=== PATIENT | female | born 1985 | race Caucasian/White ===

== ENCOUNTER 2018-11-08 19:04 | Inpatient (IN) ==
--- NOTE | 2018-11-08 19:14 | ED ---
HPI General Chief Complaint: Medical Clearance Stated Complaint: Transfer Neuro/FHNSB Time Seen by Provider: 11/08/18 19:11 Source: EMS Mode of arrival: EMS History of Present Illness HPI Narrative: pt is a transfer from [facility] . pt reports having fallen today and coming to consciousness and didn't remember what had happened , pt had blood on her right occiput , called her he came home and they when to another ER ,CT finding intracranial bleeding SAH mild in frontal left area , Dr Caro was called and accepts the transfer and pt is stable, She has headache bitemporal no vomit no visual changes , She has retrograde amnesia of the event. Pt reports , no sign PMHx only meds and lexapro and Ativan . pt admits to daily drinking Related Data Home Medications Medication Instructions Recorded Confirmed escitalopram oxalate [Lexapro] 20 mg PO HS 11/08/18 11/08/18 lorazepam [Ativan] 0.5 mg PO BID PRN 11/08/18 11/08/18 Allergies Allergy/AdvReac Type Severity Reaction Status Date / Time No Known Allergies Allergy Verified 11/08/18 19:22 [facility] Medical History Medical History Anxiety (Acute) Concussion (Acute) Depression (Acute) Post depression (Acute) Social History Social History Substance History: No History of Abuse Second Hand Smoke Exposure: No Smoking Status: Never smoker How Often Do You Have a Drink Containing Alcohol: 4 or more times a week Recent Travel in [facility] within the Last 8 Weeks: No Recent Out of Country Travel within the Last 8 Weeks: No Exam Narrative Exam Narrative: GENERAL: pt is in no apparent distress awake alert ox3 SKIN: Warm and dry. HEAD: + traumatic. dried blood in posterior scalp she in lac bleeding controlled Normocephalic. EYES: Pupils equal and round. No scleral icterus. No injection or drainage. ENT: No nasal bleeding or discharge. Mucous membranes pink and moist. NECK: Trachea midline. No JVD. CARDIOVASCULAR: Regular rate and rhythm. RESPIRATORY: No accessory muscle use. Clear to auscultation. Breath sounds equal bilaterally. GASTROINTESTINAL: Abdomen soft, non-tender, nondistended. Hepatic and splenic margins not palpable. MUSCULOSKELETAL: Extremities without clubbing, cyanosis, or edema. No obvious deformities. NEUROLOGICAL: Awake and alert. No obvious cranial nerve deficits. Motor grossly within normal limits. Five out of 5 muscle strength in the arms and legs. Normal speech. PSYCHIATRIC: Appropriate mood and affect; insight and judgment normal. Course Initial Documented Vital Signs Temperature 98.2 F 11/08/18 19:11 Pulse Rate 69 11/08/18 19:11 Respiratory Rate 18 11/08/18 19:11 Blood Pressure 113/66 11/08/18 19:11 Pulse Oximetry 98 11/08/18 19:11 Last Documented Vital Signs Temperature 98.2 F 11/08/18 19:11 Pulse Rate 69 11/08/18 19:11 Respiratory Rate 18 11/08/18 19:11 Blood Pressure 113/66 11/08/18 19:11 Pulse Oximetry 98 11/08/18 19:11 Discharge Plan Discharge Order Discharge Orders: ED Use Only Admit Order (Routine); Ordered 11/08/18 Ordered By: Nabeel Humphreys Physicians Team ED Provider: Nabeel Humphreys Primary Care Provider: UNKNOWN, Other Providers: Christopher Adamson Rxs /Orders / Referrals /Forms Prescriptions: No Action lorazepam [Ativan] 0.5 mg Tablet 0.5 mg PO BID PRN (Reason: Anxiety) RF: 0 escitalopram oxalate [Lexapro] 20 mg Tablet 20 mg PO HS RF: 0 Status ED Status: Admitted Patient
--- NOTE | 2018-11-08 19:55 | P.CONNS ---
History of Present Illness Service: Neurosurgery Consult date: 11/08/18 Requesting Physician: Heath Caro Reason for Consult: TBI, SAH Chief Complaint: SAH s/p ground level fall History of Present Illness: I was asked by Dr. Castellon to see and evaluate this pleasant 33 yo female pt who is a transfer from [facility] . The pt reports having a ground level fall today and coming to consciousness not remembering what had happened. The pt had blood over her right occiput , Her came home and brought her to the OSH ER. A w/u including head CT revealed acute SAH mild in the left frontal region and in the occipital area midline. Dr Caro was called and accepted the patient in transfer for a higher level of care. The pt is stable and a GCS-15 on arrival to the ER. She complains of headaches but no visual changes and denies N/V's. She has retrograde amnesia of the event. Review of Systems All other systems reviewed negative except as stated in HPI [facility] [place] - History History Provided By: Patient, Engineering Supervisor / EMT - Medical History Medical History: Medical History (Last Reviewed 11/08/18 @ 20:13 by Christopher Adamson MD) Anxiety Concussion Depression Post depression - Tobacco History Second Hand Smoke Exposure: No Tobacco Use In Past 30 Days: No Smoking Status: Never smoker - Alcohol History How Often Do You Have a Drink Containing Alcohol: 4 or more times a week - Substance Use History Substance History: No History of Abuse - Travel History Recent Travel in the [facility] Within the Last 8 Weeks: No Recent Travel Out of the Country Within the Last 8 Weeks: No - Immunization History Tetanus Immunization: Unsure Medications and Allergies Allergies Allergy/AdvReac Type Severity Reaction Status Date / Time No Known Allergies Allergy Verified 11/08/18 19:22 Home Medications Medication Instructions Recorded Confirmed Type escitalopram oxalate [Lexapro] 20 mg PO HS 11/08/18 11/08/18 History lorazepam [Ativan] 0.5 mg PO BID PRN 11/08/18 11/08/18 History Exam Vital signs: Vital Signs 11/08/18 19:11 Temperature 98.2 F Pulse Rate 69 Respiratory Rate 18 Blood Pressure 113/66 Pulse Oximetry 98 Intake & Output 11/08/18 11/08/18 11/09/18 06:59 18:59 06:59 Weight 65.771 kg - Constitutional no acute distress, obese, cooperative - Routine HEENT Exam Head: Present: normocephalic, scalp tenderness Eye: Present: EOMI, PERRL, normal accommodation ENT: Present: mucous membranes moist, oropharynx clear, dentition normal, nares patent, external ear normal, TM's clear bilaterally Comments: Occipital laceration( stapled at OSH) - Routine Neck Exam Present: supple, full ROM, trachea midline - Routine Chest/Breast/Axilla Exam Comments: Denies chest pain/tenderness - Routine Respiratory Exam Present: CTA bilaterally - Routine Cardiovascular Exam Present: RRR - Routine Abdominal Exam Present: soft, normoactive bowel sounds - Routine Extremities Exam Present: full ROM, normal capillary refill Comments: scatterred bruises around the knees bilaterally, of various aging. - Routine Skin Exam Present: intact, warm - Routine Neurological Exam Present: alert, oriented X3, CN II-XII intact, normal reflexes, moving all extremities, normal tone, vision grossly intact, hearing grossly intact, normal speech - Detailed Neurological Exam: Coma Scale Eye Opening: Spontaneous Verbal Response: Oriented Motor Response: Obey commands [place] Coma Scale Total: 15 - Routine Psychiatric Exam Present: normal affect, normal thought process, cooperative Results - Diagnostic Findings EKG: report reviewed, image reviewed Chest x-ray: report reviewed, image reviewed Abdominal x-ray: report reviewed, image reviewed CT scan - abdomen: report reviewed, image reviewed CT scan - chest: report reviewed, image reviewed CT scan - pelvic: report reviewed, image reviewed US - abdomen: report reviewed, image reviewed US - kidney: report reviewed, image reviewed US - pelvic: report reviewed, image reviewed Assessment and Plan - Plan 33 yo female with minimal occipital region and left frontal region acute SAH Neuro non-focal GCS-15 Admit to ICU HOB to 30 degrees NPO for now Maintain euvolemic No indication for seizure prophylaxis No indication for repeat head CT scan. Follow Neuro exam q1hr and repeat CT only for changes in Neuro exam Will follow with you
[2018-11-08] MEDS ORDERED: Acetaminophen 325 MG Tablet PO PRN (20:50)
[2018-11-08] MEDS ORDERED: Morphine Inj 4 MG/ML Vial IV.PUSH PRN (20:50)
[2018-11-08] MEDS: Folic Acid 1 MG Tablet PO SCH (21:44)
--- NOTE | 2018-11-08 22:15 | MH ---
cc: Heath Caro MD DATE OF ADMISSION: 11/08/2018 CHIEF COMPLAINT: Trauma transfer. HISTORY OF PRESENT ILLNESS: The patient is a 33-year-old female who was transferred from an outside hospital for subarachnoid hemorrhage after suspected fall. The patient states that last night she laid down with her daughter; and, when she woke up, she noticed a large amount of blood in the bed. Her daughter was not present. However, she went to find her daughter, who was playing in another room. She noted bleeding was coming from the back of her scalp and presented to the emergency department at an outside hospital, [facility]. The patient underwent evaluation at that point in time, was found to have a scalp laceration and underwent a closure. The patient underwent further workup including imaging that did show small area of subarachnoid. The patient was transferred to [facility] for neurosurgical evaluation. The patient denies history of falls or seizures. She denies being intoxicated. She cannot recall what she struck her head on or when exactly this happened. The patient does only complain of a headache at this time. REVIEW OF SYSTEMS: The patient denies chest pain, shortness of breath, neurologic changes, vision changes, fevers, chills, night sweats, constipation, diarrhea, abdominal pain, nausea or vomiting. All review of systems were discussed with the patient and were negative except for pertinent positives mentioned above in history of present illness. PAST MEDICAL HISTORY: No chronic medical problems. PAST SURGICAL HISTORY: No previous major operations. ALLERGIES: NO KNOWN DRUG ALLERGIES. HOME MEDICATIONS: 1. Lexapro. 2. Ativan. SOCIAL HISTORY: The patient drinks alcohol daily. FAMILY HISTORY: Reviewed and noncontributory. PHYSICAL EXAMINATION: GENERAL: The patient is a female appearing her stated age, in no acute distress. She does not appear acute or chronically ill. HEENT: Head is normocephalic, atraumatic with the exception of a 4 cm laceration posterior scalp that has been closed with she without any bleeding. Pupils are round and reactive to light. Sclerae are anicteric. Oral cavity is clear. Airway is patent. Midface is stable. Cervical spine is nontender to palpation without deformity. NECK: Trachea is midline. CHEST: Chest wall stable without deformity. Breath sounds present bilaterally. HEART: Regular rhythm. No murmurs. ABDOMEN: Soft, nondistended. No seatbelt sign. No organomegaly. No ascites. Normal bowel sounds. PELVIS: Stable without deformity. EXTREMITIES: No clubbing, cyanosis or edema. No deformity to 4 extremities. BACK: No thoracic or lumbar tenderness or deformity. NEUROLOGIC: The patient is GCS 14, awake, alert, and oriented. Mood, judgment, insight are intact. Cranial nerves 2-12 are grossly intact and nonfocal peripheral exam. LABORATORY VALUES: Reviewed outside, unremarkable. IMAGING: Outside CT scan of the head is reviewed, shows possible subarachnoid hemorrhage with evolution. ASSESSMENT AND PLAN: The patient is a 33-year-old female status post likely fall from standing height with positive loss of consciousness, scalp laceration, and small subarachnoid hemorrhage. GCS 15, neurologically intact. The patient will be admitted to the intensive care unit due to her head injury. Neurosurgery was consulted and made recommendations including head of bed 30 degrees, n.p.o., and followup neuro checks. We will control the patient's pain and perform appropriate wound care on the patient's posterior laceration. Heath Caro MD AWG/ts/do , 09:20 PM , 09:31 PM MTDD
[2018-11-09] MEDS ORDERED: Chlorhexidine Gluconate 2% 1 Pack (2 Cloths) TOPICAL PRN (04:00)
[2018-11-09] MEDS ORDERED: Chlorhexidine Gluconate 2% 1 Pack (2 Cloths) TOPICAL SCH (04:00)
[2018-11-09] MEDS ORDERED: Senna/Docusate Sodium 8.6/50 MG Tablet PO SCH (09:00)
[2018-11-09 09:28] VITALS: TEMP 98.3
[2018-11-09] MEDS: Folic Acid 1 MG Tablet PO SCH (09:59)
[2018-11-09 10:03] VITALS: BP 111/83; PULSE 77; RESP 43; O2SAT 97
[2018-11-09 10:22] LABS: Eos # (Auto) 0.1 th/mm3 (0.0-0.4); Eos % (Auto) 4.2 % (0.0-4.0); Hematocrit 38.3 % (35.0-46.0); Hemoglobin 13.2 gm/dL (11.6-15.3); Lymph # (Auto) 0.8 th/mm3 (1.0-4.8); Lymph % (Auto) 23.4 % (9.0-44.0); Mean Corpuscular HGB Conc 34.4 % (32.0-36.0); Mean Corpuscular Hemoglobin 34.6 pg (27.0-34.0); Mean Corpuscular Volume 100.5 fL (80.0-100.0); Mono # (Auto) 0.4 th/mm3 (0.0-0.9); Mono % (Auto) 11.6 % (0.0-8.0); Neut # (Auto) 2.1 th/mm3 (1.8-7.7); Neut % (Auto) 59.8 % (16.0-70.0); Platelet Count 137 th/mm3 (150-450); Red Blood Count 3.81 mil/mm3 (4.00-5.30); Red Cell Distribution Width 15.9 % (11.6-17.2); White Blood Count 3.4 th/mm3 (4.0-11.0)
[2018-11-09 10:39] LABS: Anion Gap 9 meq/L (5-15); Blood Urea Nitrogen 6 mg/dL (7-18); Calcium 8.5 mg/dL (8.5-10.1); Carbon Dioxide 26.3 meq/L (21.0-32.0); Chloride 103 meq/L (98-107); Glomerular Filtration Rate Greater Than 89 mL/min (>89); Glucose,Random 85 mg/dL (74-106); Potassium 3.8 meq/L (3.5-5.1); Sodium 138 meq/L (136-145)
--- NOTE | 2018-11-09 11:23 | CT ---
EXAM DATE: 11/09/2018 11:10 AM EST AGE/SEX: 33 years / Female INDICATIONS: Trauma, laceration to posterior head. CLINICAL DATA: This is the patient's initial encounter. Patient reports that signs and symptoms have been present for 1 day and indicates a pain score of 7/10. MEDICAL/SURGICAL HISTORY: None. None. RADIATION DOSE: 34.85 CTDI (mGy) COMPARISON: No prior exams available for comparison. TECHNIQUE: CT of the head without contrast. Using automated exposure control and adjustment of the mA and/or kV according to patient size, radiation dose was kept as low as reasonably achievable to ob tain optimal diagnostic quality images. DICOM format image data is available electronically for revi ew and comparison. FINDINGS: Cerebrum: The ventricles are normal for age. No evidence of midline shift, mass lesion, hemorrhage or acute infarction. No extraaxial fluid collections are seen. Posterior Fossa: The cerebellum and brainstem are intact. The 4th ventricle is midline. The cerebe llopontine angle is unremarkable. Extracranial: Soft tissue swelling with overlying skin she is identified in the right posterior parietal region. Skull: The calvaria is intact. No evidence of skull fracture. CONCLUSION: 1. Right posterior parietal soft tissue contusion with overlying skin she. 2. No evidence of acute intracranial trauma. 3. No evidence of contusion, edema or mass effect. . Electronically signed by: Tommie Gomez MD Board Certified Radiologist 11/09/2018 11:21 AM EST
--- NOTE | 2018-11-09 12:04 | P.DS ---
Date of admission: 11/08/18 19:31 Primary care physician: UNKNOWN Brief History from admission: ? Fall DS: Diagnosis - Discharge Diagnosis (1) Scalp laceration Status: Acute (2) SAH (subarachnoid hemorrhage) Status: Acute DS: Summary Hospital Course: JANICE: Awoke from her bed with a large amount of blood around her. Amnesic to events. ?Fall. Trauma transfer. GCS = 15. INJURIES: Scalp lac (she) SAH PMHx: Anxiety, depression Posterior scalp lac Supportive care Wound care: Cleanse scalp wound daily with soap and water. Leave open to air. Staple removal in 1 week SAH Neurosurgery consulted, follow-up as outpatient Nonoperative management Repeat CT brain shows resolved TBI Tylenol for headache Avoid second head injury Post-concussive education Follow-up with PCP in 1 week Plan of care discussed with patient at bedside. Collaborating Trauma surgeon agrees with plan. Case management consulted to assist with discharge planning. Patient is clear from trauma surgery standpoint to safely discharge home. - Time Spent with Patient Total time spent providing and/or coordinating discharge services: Greater than 30 minutes - Quality: VTE Deep Vein Thrombosis/Pulmonary Embolism Present on Admission: No Exam Vital signs: Vital Signs 11/08/18 19:11 11/08/18 21:30 11/08/18 22:29 Temperature 98.2 F Pulse Rate 69 75 Respiratory Rate 18 18 Blood Pressure 113/66 124/69 120/78 Pulse Oximetry 98 95 11/08/18 23:00 11/08/18 23:28 11/08/18 23:58 Temperature Pulse Rate 106 H 85 66 Respiratory Rate 17 Blood Pressure 117/69 113/66 102/65 Pulse Oximetry 97 97 96 11/09/18 00:00 11/09/18 00:28 11/09/18 00:58 Temperature 98.6 F Pulse Rate 67 69 66 Respiratory Rate 12 13 Blood Pressure 102/65 107/69 106/65 Pulse Oximetry 97 97 96 11/09/18 01:00 11/09/18 01:28 11/09/18 01:58 Temperature Pulse Rate 61 80 59 L Respiratory Rate 23 20 Blood Pressure 107/69 104/65 Pulse Oximetry 96 98 97 11/09/18 02:00 11/09/18 02:28 11/09/18 02:58 Temperature Pulse Rate 58 L 58 L 56 L Respiratory Rate 16 22 22 Blood Pressure 124/66 96/52 L Pulse Oximetry 96 97 96 11/09/18 03:00 11/09/18 03:28 11/09/18 03:58 Temperature Pulse Rate 58 L 54 L 55 L Respiratory Rate 21 17 13 Blood Pressure 103/67 98/61 L Pulse Oximetry 97 96 97 11/09/18 04:00 11/09/18 04:28 11/09/18 04:58 Temperature 98.7 F Pulse Rate 69 62 56 L Respiratory Rate 14 Blood Pressure 98/61 L 97/62 L 90/58 L Pulse Oximetry 98 98 97 11/09/18 05:00 11/09/18 05:02 11/09/18 05:28 Temperature Pulse Rate 68 63 53 L Respiratory Rate 15 Blood Pressure 104/68 106/66 Pulse Oximetry 98 98 97 11/09/18 06:00 11/09/18 06:02 11/09/18 06:28 Temperature Pulse Rate 56 L 52 L 55 L Respiratory Rate 20 16 44 H Blood Pressure 108/72 98/55 L Pulse Oximetry 96 97 98 11/09/18 06:58 11/09/18 07:00 11/09/18 07:28 Temperature Pulse Rate 59 L 57 L 53 L Respiratory Rate 45 H 54 H 31 H Blood Pressure 111/69 111/69 99/60 L Pulse Oximetry 98 98 97 11/09/18 07:58 11/09/18 08:00 11/09/18 08:02 Temperature 98.3 F Pulse Rate 58 L 61 61 Respiratory Rate 23 22 43 H Blood Pressure 89/56 L 87/66 L Pulse Oximetry 97 98 11/09/18 08:10 11/09/18 08:28 11/09/18 08:58 Temperature Pulse Rate 59 L 55 L 60 Respiratory Rate 24 23 Blood Pressure 105/55 L 106/65 Pulse Oximetry 98 97 11/09/18 09:00 11/09/18 09:28 11/09/18 10:00 Temperature Pulse Rate 64 68 77 Respiratory Rate 23 30 H 43 H Blood Pressure 111/83 111/83 Pulse Oximetry 96 98 97 Intake & Output 11/08/18 11/09/18 11/09/18 18:59 06:59 18:59 Weight 67.5 kg Other: # Voids 2 Weight On Admission 65.7 kg - Constitutional no acute distress Comments: Standing at bedside - Routine HEENT Exam Head: Present: normocephalic, scalp tenderness Comments: Posterior scalp she well approximated - Routine Respiratory Exam Present: CTA bilaterally - Routine Cardiovascular Exam Present: RRR - Routine Abdominal Exam Present: soft, normoactive bowel sounds - Routine Extremities Exam Present: full ROM, pulses intact - Routine Neurological Exam Present: alert, oriented X3, normal speech Results Procedures completed during hospitalization: . Labs on day of discharge: Labs from last 24 hours 11/09/18 11/09/18 11/08/18 10:07 10:07 23:22 WBC 3.4 L RBC 3.81 L Hgb 13.2 Hct 38.3 MCV 100.5 H MCH 34.6 H MCHC 34.4 RDW 15.9 Plt Count 137 L MPV 8.0 Neut % (Auto) 59.8 Lymph % (Auto) 23.4 [place] % (Auto) 11.6 H Eos % (Auto) 4.2 H Baso % (Auto) 1.0 Neut # (Auto) 2.1 Lymph # (Auto) 0.8 L [place] # (Auto) 0.4 Eos # (Auto) 0.1 Baso # (Auto) 0.0 WBC Differential . Differential Comment Auto diff final Sodium 138 Potassium 3.8 Chloride 103 Carbon Dioxide 26.3 Anion Gap 9 BUN 6 L Creatinine 0.55 Estimated GFR Greater than 89 Random Glucose 85 Calcium 8.5 Beta HCG, Quant Less than 1 Nasal Screen MRSA (PCR) Not detected - Impressions ITS Impressions Head CT 11/09/18 00:00 CONCLUSION: 1. Right posterior parietal soft tissue contusion with overlying skin she. 2. No evidence of acute intracranial trauma. 3. No evidence of contusion, edema or mass effect. . Discharge Plan - Discharge Disposition Patient Disposition: Discharge Home - Discharge Condition Condition: Stable - Discharge Order Discharge Orders: Discharge Order (Routine); Ordered 11/09/18 Ordered By: Mckenna Barrios - Physicians Team Primary Care Provider: UNKNOWN, Attending Provider: Heath Caro Other Providers: Christopher Adamson MD ; Heath Caro MD ; Santo Serna MD ; Systems,[employer] Tra[employer] ; Zeeshan Santana MD ; Antonietta Morgan ARNP ; Turner Stroud MD ; Gisela Barcenas MD ; Mckenna Barrios ARNP ; Jesus Zarco MD
--- NOTE | 2018-11-09 12:43 | P.PNNS ---
Subjective Interval history: November 09, 2018 The patient has remained stable overnight. She complains of a headache. She continues to have amnesia surrounding the events. Physical Exam Vital signs: Vital Signs 11/08/18 19:11 11/08/18 21:30 11/08/18 22:29 Temperature 98.2 F Pulse Rate 69 75 Respiratory Rate 18 18 Blood Pressure 113/66 124/69 120/78 Pulse Oximetry 98 95 11/08/18 23:00 11/08/18 23:28 11/08/18 23:58 Temperature Pulse Rate 106 H 85 66 Respiratory Rate 17 Blood Pressure 117/69 113/66 102/65 Pulse Oximetry 97 97 96 11/09/18 00:00 11/09/18 00:28 11/09/18 00:58 Temperature 98.6 F Pulse Rate 67 69 66 Respiratory Rate 12 13 Blood Pressure 102/65 107/69 106/65 Pulse Oximetry 97 97 96 11/09/18 01:00 11/09/18 01:28 11/09/18 01:58 Temperature Pulse Rate 61 80 59 L Respiratory Rate 23 20 Blood Pressure 107/69 104/65 Pulse Oximetry 96 98 97 11/09/18 02:00 11/09/18 02:28 11/09/18 02:58 Temperature Pulse Rate 58 L 58 L 56 L Respiratory Rate 16 22 22 Blood Pressure 124/66 96/52 L Pulse Oximetry 96 97 96 11/09/18 03:00 11/09/18 03:28 11/09/18 03:58 Temperature Pulse Rate 58 L 54 L 55 L Respiratory Rate 21 17 13 Blood Pressure 103/67 98/61 L Pulse Oximetry 97 96 97 11/09/18 04:00 11/09/18 04:28 11/09/18 04:58 Temperature 98.7 F Pulse Rate 69 62 56 L Respiratory Rate 14 Blood Pressure 98/61 L 97/62 L 90/58 L Pulse Oximetry 98 98 97 11/09/18 05:00 11/09/18 05:02 11/09/18 05:28 Temperature Pulse Rate 68 63 53 L Respiratory Rate 15 Blood Pressure 104/68 106/66 Pulse Oximetry 98 98 97 11/09/18 06:00 11/09/18 06:02 11/09/18 06:28 Temperature Pulse Rate 56 L 52 L 55 L Respiratory Rate 20 16 44 H Blood Pressure 108/72 98/55 L Pulse Oximetry 96 97 98 11/09/18 06:58 11/09/18 07:00 11/09/18 07:28 Temperature Pulse Rate 59 L 57 L 53 L Respiratory Rate 45 H 54 H 31 H Blood Pressure 111/69 111/69 99/60 L Pulse Oximetry 98 98 97 11/09/18 07:58 11/09/18 08:00 11/09/18 08:02 Temperature 98.3 F Pulse Rate 58 L 61 61 Respiratory Rate 23 22 43 H Blood Pressure 89/56 L 87/66 L Pulse Oximetry 97 98 11/09/18 08:10 11/09/18 08:28 11/09/18 08:58 Temperature Pulse Rate 59 L 55 L 60 Respiratory Rate 24 23 Blood Pressure 105/55 L 106/65 Pulse Oximetry 98 97 11/09/18 09:00 11/09/18 09:28 11/09/18 10:00 Temperature Pulse Rate 64 68 77 Respiratory Rate 23 30 H 43 H Blood Pressure 111/83 111/83 Pulse Oximetry 96 98 97 Intake & Output 11/08/18 11/09/18 11/09/18 18:59 06:59 18:59 Intake Total 500 / 500 Balance 500 / 500 Weight 67.5 kg Intake: Oral 500 / 500 Other: # Voids 2 4 Weight On Admission 65.7 kg - Routine Neurological Exam November 09, 2018 Patient is lying in bed as I enter the room. She is in no acute distress. On neurological examination, mental status testing finds her to be awake and alert. She is oriented by 3. Cognitive function is grossly intact except for amnesia surrounding the events. Her speech is fluent. Cranial nerve testing 2 through 12 is grossly intact. There were no focal motor nor sensory deficits. The patient is ambulatory and continent. Assessment and Plan - Plan 33 yo female with minimal occipital region and left frontal region acute SAH Neuro non-focal GCS-15 Admit to ICU HOB to 30 degrees NPO for now Maintain euvolemic No indication for seizure prophylaxis No indication for repeat head CT scan. Follow Neuro exam q1hr and repeat CT only for changes in Neuro exam Will follow with you November 09, 2018 The patient has remained stable overnight and is neurologically intact. There is no reason from a neurosurgical point of view that she cannot be discharged. She can follow-up in the neurosurgery clinic in 10-14 days. Discharge instructions should be given as per standard for a mild closed blunt head injury. Neurosurgery will sign off.
== END 2018-11-09 12:30 | disposition home or self-care (01) | DRG 84 ==
LOC: NEPE 19:04 → NEDA 19:31 → N03 22:15
PROVIDERS: ADMIT Surgery; ATTEND Surgery